=== PATIENT | female | born 1965 | race African-American/Black ===

== ENCOUNTER 2019-07-10 14:49 | Outpatient (CLI) | payer BC, SELFPAY ==
--- NOTE | ~2019-07-10 | US_ITS ---
EXAMINATION: US thyroid DATE: 07/10/2019 15:50 INDICATION: Nontoxic goiter TECHNIQUE: Multiple ultrasound images of the thyroid were obtained. COMPARISON: None. FINDINGS: The right thyroid lobe measures 4.9 x 1.8 x 1.9 cm. The left thyroid lobe measures 4.7 x 1.5 x 2.2 c m. There are several subcentimeter hypoechoic solid nodules the largest a 6 mm wider than tall with well-defined nodule without echogenic foci (TI-RADS 4, moderately suspicious , FNA if >=1.5 cm, annua l followup is >1 cm) at the junction of the isthmus and left thyroid lobe. There is normal echotextur e, echogenicity and vascular flow throughout the thyroid gland. IMPRESSION: 1. Multiple subcentimeter solid thyroid nodules which do not meet criteria for biopsy or follow-up. Reviewed, dictated and finalized at location A.
== END 2019-07-10 14:50 | disposition home or self-care (01) ==
LOC: ANHIMG 15:07
PROVIDERS: Visit Provider Internal Medicine Endocrinology, Diabetes & Metabolism
DX: E04.9 Nontoxic goiter, unspecified (principal)
CPT/HCPCS: 76536

== ENCOUNTER 2019-09-02 15:37 | Inpatient (IN) | payer OTHER, SELFPAY ==
--- NOTE | ~2019-09-02 | XR_ITS ---
XR chest ET placement DATE: 09/04/2019 15:36 INDICATION: Intubation. Central line. OG tube placement. TECHNIQUE: Portable AP chest on 09/04/2019 at 1540 hours COMPARISON: 09/04/2019 portable AP chest at 0551 hours FINDINGS: ET tube in satisfactory position 2.1 cm above juan. Orogastric tube in stomach. Right int ernal jugular central venous catheter tip is noted at approximately superior cavoatrial junction. There are extensive bilateral pulmonary infiltrates which predominate centrally and in the lower lung zones, suggesting pulmonary edema, extensive pneumonia and/or ARDS. No pneumothorax. No significant pleural effusion is noted. IMPRESSION: ET and NG tubes in satisfactory position Right internal jugular central venous catheter tip at superior cavoatrial junction Reviewed, dictated and finalized at Location A. Reviewed, dictated and finalized at location A. IMPRESSION: ET and NG tubes in satisfactory position Right internal jugular central venous catheter tip at superior cavoatrial junct ion
--- NOTE | ~2019-09-02 | XR_ITS ---
EXAMINATION: XR chest 1V portable DATE: 09/05/2019 05:58 INDICATION: COVID-19 pneumonia. TECHNIQUE: A single frontal view of the chest was obtained. COMPARISON: Chest single view 09/04/2019 FINDINGS: There are patchy airspace opacities throughout the lungs bilaterally. No pleural effusion o r pneumothorax. The heart size is normal. The endotracheal tube tip is 3.3 cm above the juan. The n asogastric tube tip is in the stomach. A right internal jugular central venous catheter is seen with tip in the superior vena cava. IMPRESSION: 1. Stable diffuse lung disease, consistent with pneumonia versus pulmonary edema versus acute respira tory distress syndrome (ARDS). Reviewed, dictated and finalized at location A. IMPRESSION: 1. Stable diffuse lung disease, consistent with pneumonia versus pulmonary marysol a versus acute respiratory distress syndrome (ARDS).
--- NOTE | ~2019-09-02 | XR_ITS ---
EXAMINATION: XR chest 1V portable DATE: 09/04/2019 06:02 INDICATION: Shortness of breath. COVID-19 pneumonia. TECHNIQUE: A single frontal view of the chest was obtained. COMPARISON: Chest single view 09/02/2019 FINDINGS: There are patchy airspace opacities throughout the lungs bilaterally. No pleural effusion o r pneumothorax. The heart size is normal. Surgical clips in the right upper quadrant are likely from cholecystectomy. IMPRESSION: 1. Worsened diffuse lung disease, consistent with pneumonia versus pulmonary edema versus acute respi ratory distress syndrome (ARDS). Reviewed, dictated and finalized at location A. IMPRESSION: 1. Worsened diffuse lung disease, consistent with pneumonia versus pulmonary ed jeff versus acute respiratory distress syndrome (ARDS).
--- NOTE | ~2019-09-02 | CT_ITS ---
EXAMINATION: CT brain wo con DATE: 09/04/2019 08:11 INDICATION: Dizziness. Altered mental state. Nausea. Positive Covid-19 TECHNIQUE: Computed tomography (CT) of the head was performed without intravenous contrast. The mA wa s adjusted according to patient size. Iterative reconstruction technique was employed. Exam dose: 60 5.33 mGy-cm total exam DLP. COMPARISON: 08/08/2018 CT brain 03/01/2019 CTA brain carotid FINDINGS: Examination is limited due to patient motion. No intracranial mass lesion or hemorrhage or cerebrovascular accident is evident. No midline shift or mass effect. No subdural or epidural hematoma. No fracture or bone destruction of the cranial vault. Included sinuses and mastoid air cells are unremarkable. Empty sella appearance is again noted. IMPRESSION: No acute intracranial finding noted Reviewed, dictated and finalized at Location A. Reviewed, dictated and finalized at location A.
--- NOTE | ~2019-09-02 | CT_ITS ---
EXAMINATION: CT brain wo con DATE: 09/06/2019 13:35 INDICATION: Cerebrovascular accident. Evaluate for possible intracranial bleed. TECHNIQUE: Computed tomography (CT) of the head was performed without intravenous contrast. The mA wa s adjusted according to patient size. Iterative reconstruction technique was employed. Exam dose: 60 5.33 mGy-cm total exam DLP. COMPARISON: 09/04/2019 CT brain FINDINGS: There is dramatic interval change since 09/04/2019 with extensive encephalomalacia involving the left cerebral hemisphere including the left temporal, frontal and parietal lobes in the distribu tion of the middle cerebral artery in particular, with involvement of some of the distribution of the anterior cerebral artery as well. There is edema of the left cerebral hemisphere with effacement of the cortical sulci. There is compression of the body of the left lateral ventricle and left frontal h orn as well as right frontal horn There is subfalcine rightward midline shift. There is evidence of s ome focal hemorrhage within the medial aspect of the left frontal lobe. There is evidence of some thr ombosed branches of the middle cerebral artery. 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 Left cerebral edema, cortical sulcal effacement, subfalcine rightward midline shift Dr. Leach telephoned the report to hospital senior speech pathologist Dr. Blood on 09/06/2019 at 1352 hours. Reviewed, dictated and finalized at Location [facility]. Reviewed, dictated and finalized at location A. IMPRESSION: Massive left middle cerebral artery territory cerebrovascular righ t infarct, with involvement of some anterior left cerebral artery distribution as well; there is some focal hemorrhage within the medial aspect of the left fr ontal lobe. Left cerebral edema, cortical sulcal effacement, subfalcine rightward midline s hift Dr. Leach telephoned the report to hospital senior speech pathologist Dr. Blood on 0 at 1352 hours.
--- NOTE | ~2019-09-02 | XR_ITS ---
EXAMINATION: XR chest 1V portable EXAM DATE: 09/02/2019 17:37 INDICATION: Shortness of breath and cough. TECHNIQUE: Frontal and lateral projections of the chest obtained and reviewed. Comparison is made to prior examination from 08/08/2018. FINDINGS: There is interval development of rather extensive ill-defined bilateral airspace disease, differential diagnosis including infection, acute lung injury, edema. No pneumothorax or pleural effu freddie. Mild cardiomegaly. Cardiac silhouette is stable in size compared to prior exam. There are merle cystectomy clips. IMPRESSION: 1. Development of rather extensive acute airspace disease; clinical correlation. Reviewed, dictated and finalized at location A. IMPRESSION: 1. Development of rather extensive acute airspace disease; clinical correlati on.
[2019-09-02 15:40] VITALS: BP 157/95; PULSE 95; RESP 20; TEMP 37.8; O2SAT 100
[2019-09-02] MEDS: SODIUM CHLORIDE 0.9% IV 1,000 ML 150 ML IV CONT (17:59)
[2019-09-02] MEDS: ONDANSETRON INJ 4 MG/2 ML VIAL IV PUSH (18:00)
--- NOTE | 2019-09-02 18:00 | ED.RECABL ---
HPI - Recheck/Abnormal Lab/Rx General Chief Complaint: Recheck/Abnormal Lab/Rx Stated Complaint: SOB Time Seen by Provider: 09/02/19 17:48 History of Present Illness HPI narrative: Patient presents with her daughter for ongoing COVID infection, fever, and vomiting. She complains of pain in her back on the left side. Her oxygen has been fine. She has been seen recently in another ER, and discharged. She is even been vomiting water. Her symptoms started in June. Related Data Home Medications Medication Instructions Recorded Confirmed amlodipine [Norvasc] 03/10/19 atorvastatin [Lipitor] 10 mg PO DAILY 03/10/19 03/10/19 hydrochlorothiazide 12.5 mg PO DAILY 03/10/19 03/10/19 metformin [Glucophage XR] mg PO 03/10/19 Allergies Allergy/AdvReac Type Severity Reaction Status Date / Time No Known Allergies Allergy Verified 03/10/19 08:32 Review of Systems Review of Systems: Narrative: CONSTITUTIONAL: She has fever, chills, or sweats. EYES: Denies visual changes, redness, or discharge. ENT: Denies rhinorrhea, congestion, sore throat, or otalgia. CARDIOVASCULAR: Denies palpitations, or edema. RESPIRATORY: She has cough and shortness of breath GASTROINTESTINAL: Denies abdominal pain, diarrhea. GENITOURINARY: Denies dysuria or hematuria. SKIN: Denies rash or itching. MUSCULOSKELETAL: Denies back pain, joint pain, or myalgia. NEUROLOGIC: Denies headache, numbness, or weakness. PSYCHIATRIC: Denies anxiety or depression. All systems reviewed & are unremarkable except as noted in HPI and below PMFSH Past Medical History Medical History Anemia DM II (diabetes mellitus, type II), controlled Hypertension UTI (urinary tract infection) Surgical History Surgical History History of cholecystectomy History of hysterectomy Hx of toe surgery Social History Social History Smoking status: Never smoker Gender identity (if verbalized by the patient): Female Exam Const: General: no acute distress and alert Orientation/consciousness: patient oriented x3 Course Reevaluation(s) Reevaluation #1: Discussed with the patient and her daughter the admission process, and that Dr. Real requests that she not have anything to eat or drink. She agrees. Date: 09/02/19 Time: 19:43 Consultations Consultation #1: Call the hospitalist for admission. Despite normal saturations the patient's blood gas shows that that she is hypoxic with a PO2 of 66. The repeated vomiting puts her at risk of dehydration. Will admit for observation and IV fluids. Date: 09/02/19 Time: 18:42 Vital Signs Vital signs: Vital Signs Temperature 100.0 F H 09/02/19 15:40 Pulse Rate 95 09/02/19 15:40 Respiratory Rate 20 09/02/19 15:40 Blood Pressure 157/95 H 09/02/19 15:40 Pulse Oximetry 100 09/02/19 15:40 Temperature 99.3 F 09/02/19 18:41 Pulse Rate 100 09/02/19 18:41 Respiratory Rate 18 09/02/19 18:41 Blood Pressure 142/70 H 09/02/19 18:41 Pulse Oximetry 99 09/02/19 18:41 MDM - Recheck/Abnormal Lab/Rx MDM Narrative Medical decision making narrative: She is known to have COVID but her oxygen remains normal. The problem now is that she is vomiting and not keeping down fluids. Medical Records Attestation: I reviewed the patient's medical records. Lab Data Attestation: I reviewed the patient's lab results. Result diagrams: 09/02/19 18:18 09/02/19 18:17 Labs: Lab Results 09/02/19 09/02/19 09/02/19 Range/Units 18:17 18:17 18:17 WBC (4.5-10.0) K/mm3 RBC (4.2-5.4) M/mm3 Hgb (12.0-15.0) g/dL Hct (37.0-47.0) % MCV (80-100) fl MCH (26-34) pg MCHC (32-36) g/dl RDW (11.5-14.5) % Plt Count (150-375) k/mm3 MPV (7.4-10.4) fl Immature Gran % (Auto) (0-0.5) % Neut % (Auto) (45.5-73.1
[2019-09-02 18:26] LABS: Alveolar/Arterial O2 Gradient 152.8 mmHg; Base Excess ABG -3.4 mEq/l (+/-2.0); Fractional Inspired Oxygen 36 %; HCO3 ABG 20.5 mEq/l (22.0-26.0); Oxygen Saturation ABG 93.8 % (95.0-100.0); Oxyhemoglobin 89.4 % THb (90.0-100.0); PCO2 ABG 32.3 mmHg (35.0-45.0); PO2 ABG 66.4 mmHg (80.0-100.0); PO2 FiO2 Ratio Arterial Blood 1.84 %; Total Hemoglobin 9.5 g/dL (12.0-18.0)
[2019-09-02 18:27] LABS: Device NASAL CANNULA; Site Drawn LEFT BRACHIAL
[2019-09-02 18:32] LABS: Basophils Percent Auto 0.1 % (0.2-1.2); Hematocrit 27.2 % (37.0-47.0); Hemoglobin 8.6 g/dL (12.0-15.0); Immature Granulocyte Absolute 0.05 K/mm3 (0.00-0.031); Immature Granulocyte Percent A 0.6 % (0-0.5); Lymphocytes Absolute Auto 0.97 K/mm3 (0.9-3.2); Mean Corpuscular HGB Conc 31.6 g/dl (32-36); Mean Corpuscular Hemoglobin 22.1 pg (26-34); Mean Corpuscular Volume 69.7 fl (80-100); Mean Platelet Volume 9.8 fl (7.4-10.4); Monocytes Absolute Auto 0.2 K/mm3 (0.1-0.6); Monocytes Percent Auto 2.4 % (2.6-8.5); Neutrophils Absolute Auto 7.6 K/mm3 (1.3-6.7); Neutrophils Percent Auto 85.9 % (45.5-73.1); Platelet Count Result 490 k/mm3 (150-375); Red Cell Distribution Width 18.9 % (11.5-14.5); White Blood Count 8.8 K/mm3 (4.5-10.0)
[2019-09-02 18:41] VITALS: BP 142/70; PULSE 100; RESP 18; TEMP 37.4; O2SAT 99
[2019-09-02 18:46] LABS: Alanine Aminotransferase 29 U/L (4-35); Albumin Level 3.5 g/dL (3.5-5.1); Alkaline Phosphatase 129 U/L (38-126); Aspartate Amino Transferase 57 U/L (14-36); Bilirubin,Total 0.5 mg/dL (0.2-1.3); Blood Urea Nitrogen 27 mg/dL (7-17); Calcium 8.2 mg/dL (8.4-10.2); Carbon Dioxide 20 mmol/L (22-30); Chloride 101 mmol/L (98-107); Estimated Glomerular Filt Rate 57; Glucose 277 mg/dL (65-105); Lactic Acid 0.9 mmol/L (0.7-2.1); Potassium 4.6 mmol/L (3.4-5.0); Sodium 131 mmol/L (137-145)
[2019-09-02 18:56] LABS: Troponin I < 0.012 ng/mL (0.000-0.034)
[2019-09-02 20:05] VITALS: BP 135/58; PULSE 101; RESP 18; TEMP 37.3; O2SAT 91
[2019-09-02 20:50] VITALS: BMI 33.6
--- NOTE | 2019-09-02 21:22 | PM.IMHP ---
H&P: HPI History of Present Illness Chief complaint: Ongoing nausea and vomiting, feeling bad++ Narrative: This is a pleasant 54 year old Diabetic female who presented to the hospital today with known COVID-19 infection, nausea, vomiting, and fatigue. The patient tested positive for COVID-19 at [facility] one week ago and reports that she has had ongoing fevers, nasuea, and vomiting. She reports generalized weakness. She last ate over a day ago and hasn't een able to keep any food or fluid down secondary to severe nausea. The patient was evaluated in the ER tonight and found to be hypoxemic on ABG. The patient reports ongoing nonproductive coughing but denies any signficiant shortness of breath tonight. Despite her ABG demonstrating a pO2 of 66.4, she has been saturating 99-100% on room air. CXR demonstrated development of rather extensive acute airspace disease; clinical correlation. The patient was started on IV antibiotics in the ER tonight. She has no other complaints and we have been asked to admit her to the hospital for supportive care. Review of Systems Review of Systems: All systems reviewed & are unremarkable except as noted in HPI and below PMFSH Past Medical History Medical History Anemia DM II (diabetes mellitus, type II), controlled Hypertension UTI (urinary tract infection) Surgical History Surgical History History of cholecystectomy History of hysterectomy Hx of toe surgery Family History Family History Other Diabetes mellitus Social History Social History Smoking status: Never smoker Alcohol intake: never Substance use: never Gender identity (if verbalized by the patient): Female Spiritual care concerns: No Meds Home Medications and Allergies Home Medications Medication Instructions Recorded Confirmed Type amlodipine [Norvasc] 03/10/19 History metformin [Glucophage XR] mg PO 03/10/19 History Allergies Allergy/AdvReac Type Severity Reaction Status Date / Time No Known Allergies Allergy Verified 03/10/19 08:32 Vital Signs Vital Signs - 24 hr 09/02/19 15:40 09/02/19 18:41 Temperature 37.8 C H 37.4 C Pulse Rate 95 100 Respiratory Rate 20 18 Blood Pressure 157/95 H 142/70 H Pulse Oximetry 100 99 Exam Const: General: cooperative, alert, awake and ill appearing Nutritional Appearance: well nourished Orientation/consciousness: patient oriented x3 HENMT: Head: normal to inspection General nose exam: Normal external nose present Face and sinus: normal facial exam Mouth: Yes Normal oral and palatal mucosa present and Yes oropharynx normal Eyes: Pupils: Equal, round and reactive pupils present EOM: EOMs intact bilaterally Neck: Neck: supple and no JVD Thyroid: thyroid normal Lymphatic: lymphadenopathy not noted Resp: Effort & Inspection: normal respiratory effort and other (coughing++ ) Auscultation: crackles (bibasilar++) Cardio: Rate: regular rate Rhythm: regular rhythm Heart sounds: no murmurs GI: Inspection: normal to inspection Auscultation: normal bowel sounds Skin: General skin exam: normal color and no rashes or lesions noted Neuro: General: patient oriented x3 Cranial nerves: Yes CN's II-XII intact bilaterally and Yes Equal, round and reactive pupils present Speech: normal speech Motor exam (neuro): 5/5 motor strength present throughout Sensory Exam: normal sensation Extrem: General: normal to inspection and no edema Psych: Mental Status: mental status grossly normal Affect: normal affect H&P: Results Labs Labs: Short CBC 09/02/19 Range/Units 18:18 WBC 8.8 (4.5-10.0) K/mm3 Hgb 8.6 L (12.0-15.0) g/dL Hct 27.2 L (37.0-47.0) % Plt Count 490 H (150-375) k/mm3 BMP 09/02/19 18:17 Sodium
[2019-09-02] MEDS: ALBUTEROL SULFATE (*SP) AEROSOL 1 PUFF 2 PUFF INHALATION (22:02)
[2019-09-02 22:09] VITALS: O2SAT 90
[2019-09-02] MEDS: SODIUM CHLORIDE 0.9% IV 1,000 ML 125 ML IV CONT (22:59)
[2019-09-03] VITALS (12 sets, daily range): BP systolic 129–146; BP diastolic 70–85; PULSE 91–105; RESP 20; TEMP 36.7–38.1; O2SAT 82–94
[2019-09-03 01:51] LABS: Glucose Point of Care 297 (65-105)
[2019-09-03] MEDS: MORPHINE SULFATE 2 MG/ML INJ IV PUSH (03:25)
[2019-09-03 06:40] LABS: Glucose Point of Care 303 (65-105)
[2019-09-03] MEDS: INSULIN ASPART (*BKC) 100 UNITS/ML SUB-Q ×3 (06:43→17:38)
--- NOTE | 2019-09-03 08:18 | ADMGEN ---
This patient, Natividad Ramirez, was admitted to 3 [facility] Surg Room 327-01. Patient/family oriented to hospital policies and general routines including ID bracelet, bed and alarms, visiting hours, pain management, procedures, bathroom and other care routines, personal items, smoking policy, room service/diet, and visiting hours. Valuables list has been completed. Information on how to activate the Rapid Response Team has been discussed. Patient/Family are encouraged to report perceived risks to care and to ask questions if they do not understand what they are told or what they should do.
--- NOTE | 2019-09-03 09:09 | P.PNIM_ITS ---
Progress Note: A&P Assessment and Plan (1) COVID-19: Code(s): U07.1 - COVID-19 Status: Acute Assessment and Plan: Patient tested positive for COVID-19 at outside facility. Endorses cough and shortness of breath. She was febrile at 100.5 early this morning. On my exam today, she was maintaining adequate saturation on 4 L O2 and was in NARD. Shortly thereafter, she became hypoxic. RT evaluated patient and attempted high flow NC which she did not tolerate, so transitioned to non-rebreather. She is currently on 12L and maintaining O2 saturation 99-100%. * Continue non-rebreather and wean as tolerated. Continuous pulse ox for monitoring. Will monitor respiratory status closely and will need to consider transition to higher acuity status if oxygenation continues to decline with non-rebreather. * Continue droplet isolation * Continue Mucinex and cornet to help mobilize secretions * Continue acetaminophen prn fever * Trend acute phase reactants * Continue albuterol MDI. * Discontinue IV fluids. * Continue to monitor CXR for progression (2) Pneumonia: Qualifiers: Laterality: unspecified laterality Lung location: unspecified part of lung Pneumonia type: due to unspecified organism Qualified Code(s): J18.9 - Pneumonia, unspecified organism Code(s): J18.9 - Pneumonia, unspecified organism Status: Acute Assessment and Plan: CXR reveals extensive acute airspace disease. Likely viral pneumonia from COVID- 19. Lactic wnl at 0.9 * Continue oxygen supplementation as needed with goal saturation >92% * Continue ceftriaxone and azithromycin * Will attempt to obtain sputum culture * Blood cultures pending * Pneumococcal antigen pending * RT to assess and treat with recommendations appreciated (3) Acute dehydration: Code(s): E86.0 - Dehydration Status: Acute Assessment and Plan: Patient appeared dehydrated at presentation and received IV fluids overnight. She was made NPO at admission. Patient appears euvolemic on exam today. * Discontinue IV fluids due to COVID-19 status and concerns for fluid overload * Monitor urine output and vital signs closely * Begin clear liquid diet (4) Acute renal failure: Qualifiers: Acute renal failure type: unspecified Qualified Code(s): N17.9 - Acute kidney failure, unspecified Code(s): N17.9 - Acute kidney failure, unspecified Status: Acute Assessment and Plan: At presentation, creatinine elevated at 1.2. This may have been due to acute dehydration. BMP pending today. * Monitor BMP closely. * Discontinue IV fluids as patient appears euvolemic and is at risk for fluid overload. * Continue to hold metformin * Avoid nephrotoxic agents and renally dose medications. (5) DM II (diabetes mellitus, type II), controlled: Qualifiers: Diabetes mellitus complication status: without complication Diabetes mellitus group home insulin use: without joint terminal attack controller use Qualified Code(s): E11.9 - Type 2 diabetes mellitus without complications Code(s): E11.9 - Type 2 diabetes mellitus without complications Status: Chronic Assessment and Plan: Last a1c April 2019 was 11.4. Blood sugars are elevated in the 290-300 range. * Continue accuchecks, SSI Coverage, and hypoglycemic protocol. * Continue to hold metformin secondary to DIONNA * Patients home Tresiba is non-formulary so will transition to lantus with 20% reduction * Check updated A1c (6) Hypertension: Qualifiers: Hypertension type:
--- NOTE | 2019-09-03 09:09 | PM.IMPN ---
Progress Note: A&P Assessment and Plan (1) COVID-19: Code(s): U07.1 - COVID-19 Status: Acute Assessment and Plan: Patient tested positive for COVID-19 at outside facility. Endorses cough and shortness of breath. She was febrile at 100.5 early this morning. On my exam today, she was maintaining adequate saturation on 4 L O2 and was in NARD. Shortly thereafter, she became hypoxic. RT evaluated patient and attempted high flow NC which she did not tolerate, so transitioned to non-rebreather. She is currently on 12L and maintaining O2 saturation 99-100%. Continue non-rebreather and wean as tolerated. Continuous pulse ox for monitoring. Will monitor respiratory status closely and will need to consider transition to higher acuity status if oxygenation continues to decline with non-rebreather. Continue droplet isolation Continue Mucinex and cornet to help mobilize secretions Continue acetaminophen prn fever Trend acute phase reactants Continue albuterol MDI. Discontinue IV fluids. Continue to monitor CXR for progression (2) Pneumonia: Qualifiers: Laterality: unspecified laterality Lung location: unspecified part of lung Pneumonia type: due to unspecified organism Qualified Code(s): J18.9 - Pneumonia, unspecified organism Code(s): J18.9 - Pneumonia, unspecified organism Status: Acute Assessment and Plan: CXR reveals extensive acute airspace disease. Likely viral pneumonia from COVID-19. Lactic wnl at 0.9 Continue oxygen supplementation as needed with goal saturation >92% Continue ceftriaxone and azithromycin Will attempt to obtain sputum culture Blood cultures pending Pneumococcal antigen pending RT to assess and treat with recommendations appreciated (3) Acute dehydration: Code(s): E86.0 - Dehydration Status: Acute Assessment and Plan: Patient appeared dehydrated at presentation and received IV fluids overnight. She was made NPO at admission. Patient appears euvolemic on exam today. Discontinue IV fluids due to COVID-19 status and concerns for fluid overload Monitor urine output and vital signs closely Begin clear liquid diet (4) Acute renal failure: Qualifiers: Acute renal failure type: unspecified Qualified Code(s): N17.9 - Acute kidney failure, unspecified Code(s): N17.9 - Acute kidney failure, unspecified Status: Acute Assessment and Plan: At presentation, creatinine elevated at 1.2. This may have been due to acute dehydration. BMP pending today. Monitor BMP closely. Discontinue IV fluids as patient appears euvolemic and is at risk for fluid overload. Continue to hold metformin Avoid nephrotoxic agents and renally dose medications. (5) DM II (diabetes mellitus, type II), controlled: Qualifiers: Diabetes mellitus complication status: without complication Diabetes mellitus residential insulin use: without residential use Qualified Code(s): E11.9 - Type 2 diabetes mellitus without complications Code(s): E11.9 - Type 2 diabetes mellitus without complications Status: Chronic Assessment and Plan: Last a1c April 2019 was 11.4. Blood sugars are elevated in the 290-300 range. Continue accuchecks, SSI Coverage, and hypoglycemic protocol. Continue to hold metformin secondary to DIONNA Patients home Tresiba is non-formulary so will transition to lantus with 20% reduction Check updated A1c (6) Hypertension: Qualifiers: Hypertension type: unspecified Qualified Code(s): I10 - Essential (primary) hypertension Code(s): I10 - Essential (primary) hypertension Status: Chronic Assessment and Plan: Blood pressure evaluated today and stable at 137/85. Continue home dose amlodipine Resume HCTZ when renal function is normal. Continue to monitor closely (7) Anemia: Qualifiers: Anemia type: unspecified type Mauricio
[2019-09-03] MEDS: ALBUTEROL SULFATE (*SP) AEROSOL 1 PUFF 2 PUFF INHALATION ×3 (09:25→19:33)
[2019-09-03] MEDS: AMLODIPINE BESYLATE 5 MG TABLET PO (10:41)
[2019-09-03 11:34] LABS: Hematocrit 27.5 % (37.0-47.0); Hemoglobin 8.6 g/dL (12.0-15.0); Mean Corpuscular HGB Conc 31.3 g/dl (32-36); Mean Corpuscular Hemoglobin 21.9 pg (26-34); Mean Corpuscular Volume 70.2 fl (80-100); Mean Platelet Volume 9.4 fl (7.4-10.4); Platelet Count Result 510 k/mm3 (150-375); Red Blood Count 3.92 M/mm3 (4.2-5.4); Red Cell Distribution Width 19.1 % (11.5-14.5); White Blood Count 7.4 K/mm3 (4.5-10.0)
[2019-09-03 11:47] LABS: Alanine Aminotransferase 29 U/L (4-35); Albumin Level 3.3 g/dL (3.5-5.1); Alkaline Phosphatase 126 U/L (38-126); Aspartate Amino Transferase 53 U/L (14-36); Bilirubin,Total 0.4 mg/dL (0.2-1.3); Blood Urea Nitrogen 26 mg/dL (7-17); Calcium 8.2 mg/dL (8.4-10.2); Carbon Dioxide 22 mmol/L (22-30); Chloride 105 mmol/L (98-107); Estimated CRCL calculation 51 ml/min; Estimated Glomerular Filt Rate 57; Glucose 284 mg/dL (65-105); Potassium 4.6 mmol/L (3.4-5.0); Sodium 136 mmol/L (137-145)
[2019-09-03 13:22] LABS: Glucose Point of Care 254 (65-105)
[2019-09-03] MEDS: ONDANSETRON INJ 4 MG/2 ML VIAL IV PUSH (17:30)
[2019-09-03] MEDS: GUAIFENESIN/DEXTROMETHORPHAN 10 ML UDC 5 ML PO (17:30)
[2019-09-03 18:45] LABS: Glucose Point of Care 271 (65-105)
--- NOTE | 2019-09-03 19:34 | PCRCNOTE ---
PT refused tx
[2019-09-03] MEDS: INSULIN GLARGINE (*BKC) 100 UNITS/ML 16 UNITS SUB-Q (20:24)
[2019-09-04] VITALS (22 sets, daily range): BP systolic 117–230; BP diastolic 65–139; PULSE 92–132; RESP 20–41; TEMP 37.1–38; O2SAT 78–100
[2019-09-04 00:01] LABS: Glucose Point of Care 297 (65-105)
[2019-09-04] MEDS: INSULIN ASPART (*BKC) 100 UNITS/ML SUB-Q ×3 (00:02→17:49)
[2019-09-04] MEDS: ONDANSETRON INJ 4 MG/2 ML VIAL IV PUSH (04:29)
[2019-09-04 06:04] LABS: Glucose Point of Care 285 (65-105)
[2019-09-04 06:08] LABS: Hematocrit 26.6 % (37.0-47.0); Hemoglobin 8.5 g/dL (12.0-15.0); Immature Granulocyte Percent A 0.8 % (0-0.5); Lymphocytes Percent Auto 8.8 % (18.3-44.2); Mean Corpuscular Hemoglobin 21.9 pg (26-34); Mean Corpuscular Volume 68.6 fl (80-100); Mean Platelet Volume 9.3 fl (7.4-10.4); Neutrophils Percent Auto 87.1 % (45.5-73.1); Platelet Count Result 528 k/mm3 (150-375); Red Blood Count 3.88 M/mm3 (4.2-5.4); Red Cell Distribution Width 18.9 % (11.5-14.5); White Blood Count 9.7 K/mm3 (4.5-10.0)
[2019-09-04 06:09] LABS: Basophils Percent Auto 0.1 % (0.2-1.2); Eosinophils Percent Auto 0.2 % (0-4.4); Immature Granulocyte Absolute 0.08 K/mm3 (0.00-0.031); Lymphocytes Absolute Auto 0.85 K/mm3 (0.9-3.2); Monocytes Absolute Auto 0.3 K/mm3 (0.1-0.6); Neutrophils Absolute Auto 8.5 K/mm3 (1.3-6.7)
[2019-09-04 06:18] LABS: Alanine Aminotransferase 31 U/L (4-35); Albumin Level 3.5 g/dL (3.5-5.1); Alkaline Phosphatase 154 U/L (38-126); Aspartate Amino Transferase 58 U/L (14-36); Bilirubin,Total 0.3 mg/dL (0.2-1.3); Blood Urea Nitrogen 20 mg/dL (7-17); Calcium 8.7 mg/dL (8.4-10.2); Carbon Dioxide 23 mmol/L (22-30); Chloride 104 mmol/L (98-107); Creatine Kinase 154 U/L (30-135); Estimated CRCL calculation 51 ml/min; Estimated Glomerular Filt Rate 57; Glucose 278 mg/dL (65-105); Lactate Dehydrogenase 1673 U/L (313-618); Magnesium 2.7 mg/dL (1.6-2.3); Potassium 4.8 mmol/L (3.4-5.0); Sodium 135 mmol/L (137-145)
[2019-09-04 06:30] LABS: Hemoglobin A1C 10.5 % (<5.7)
--- NOTE | 2019-09-04 07:50 | PC.NURSE ---
Called to room to evaluate patient due to low oxygen saturation- resp tech in room. Patient restless with eyes open but not responding to verbal stimuli - will not answer when asked questions. 02 sat was 78% on nonrebreather. Rapid response team called and Sherrie BOWLES arrived to bedside. See rapid response assessment.
[2019-09-04 07:51] LABS: Alveolar/Arterial O2 Gradient 630.5 mmHg; Fractional Inspired Oxygen 100 %; HCO3 ABG 21.1 mEq/l (22.0-26.0); Oxyhemoglobin 82.8 % THb (90.0-100.0); PCO2 ABG 34.1 mmHg (35.0-45.0); PO2 FiO2 Ratio Arterial Blood 0.48 %; Total Hemoglobin 9.4 g/dL (12.0-18.0)
[2019-09-04 07:53] LABS: Device NON-REBREATHER MASK; Modified Allen's Test Pass; PO2 ABG 48.4 mmHg (80.0-100.0); Site Drawn RIGHT RADIAL
--- NOTE | 2019-09-04 08:46 | PC.NURSE ---
This patient, Natividad Ramirez, was transferred to [ICU 4 ] on 09/04/19 at 0825. Personal belongings sent with patient. Report given to [ [place]]. Appropriate documentation sent with patient.
[2019-09-04] MEDS: FUROSEMIDE INJ 40 MG/4 ML VIAL IV PUSH ×2 (08:47→09:00)
--- NOTE | 2019-09-04 08:56 | WPDCNINT ---
Assessment and Plan Assessment and plan (1) Acute respiratory failure: Qualifiers: Respiratory failure complication: hypoxia Qualified Code(s): J96.01 - Acute respiratory failure with hypoxia Code(s): J96.00 - Acute respiratory failure, unspecified whether with hypoxia or hypercapnia Status: Acute Assessment and Plan: acute hypoxic respiratory failure likely related to worsening chest x-ray pneumonia secondary to COVID-19 - patient placed on high-flow therapy with 60% flow rate had 90% FiO2 along with 15 L non-rebreather mask - patient initially was saturating in the 70s on the medical floor, currently saturating greater than 92%. - continue azithromycin and ceftriaxone. - No cough has been noted - will discuss with family as patient may require intubation if she desaturates all gets tachypneic. (2) COVID-19: Code(s): U07.1 - COVID-19 Status: Acute Assessment and Plan: Positive COVID-19 at [facility] 1 week prior to admission - will re-swab patient here at [facility] - place patient on airborne, droplet, contact precautions /isolation - will obtain inflammatory labs along with PTT /INR (3) Pneumonia: Qualifiers: Laterality: unspecified laterality Lung location: unspecified part of lung Pneumonia type: due to unspecified organism Qualified Code(s): J18.9 - Pneumonia, unspecified organism Code(s): J18.9 - Pneumonia, unspecified organism Status: Acute Assessment and Plan: as above (4) DM II (diabetes mellitus, type II), controlled: Qualifiers: Diabetes mellitus complication status: without complication Diabetes mellitus penitentiary insulin use: without termination clerk use Qualified Code(s): E11.9 - Type 2 diabetes mellitus without complications Code(s): E11.9 - Type 2 diabetes mellitus without complications Status: Chronic Assessment and Plan: patient on Accu-Cheks and sliding scale insulin along with Lantus. Blood sugars elevated, increase Lantus (5) Hypertension: Qualifiers: Hypertension type: unspecified Qualified Code(s): I10 - Essential (primary) hypertension Code(s): I10 - Essential (primary) hypertension Status: Chronic Assessment and Plan: will allow permissive hypertension given CVA. - Will treat systolic blood pressures greater than 180 mmHg (6) Right sided weakness: Code(s): R53.1 - Weakness Status: Acute Assessment and Plan: most likely CVA - discussed with Neurology, Dr. Rebollar, also thinks the same that she has had a CVA though CT scan of the brain today, 09/21/2019 does not show any acute intracranial abnormalities - given that the patient is COVID-19 positive, discussed in details with Neurology regarding anticoagulation and Acute stroke of unknown time. It was decided we will start her on Lovenox 1 mg/kg daily. (7) Acute renal failure: Qualifiers: Acute renal failure type: unspecified Qualified Code(s): N17.9 - Acute kidney failure, unspecified Code(s): N17.9 - Acute kidney failure, unspecified Status: Acute Assessment and Plan: Patient presented with acute kidney injury with a creatinine of 1.2 on admission, likely related to nausea and vomiting, possible dehydration, could also be related to hypertension, insulin-dependent diabetes - patient received adequate IV fluids, - creatinine is stable at 1.2. Given her increase bilateral infiltrates, patient will be diuresed - continue to monitor renal function, electrolytes and urine output (8) Anemia: Qualifiers: Anemia type: unspecified type Qualified Code(s): D64.9 - Anemia, unspecified Code(s): D64.9 - Anemia, unspecified Status: Chronic Assessment and Plan: patient anemic, hemoglobin has stable since admission. Will continue to monitor - l check stool for occult blood, - could be related to
[2019-09-04 09:05] LABS: Add Urine Microscopic? YES; Appearance Urine Cloudy (Clear); Bacteria Urine Trace /hpf; Bilirubin Urine Negative (Negative); Blood Urine 1+ (Negative); Color Urine Yellow (Yellow); Glucose Urine UA 2+ mg/dL (Negative); Ketones Urine 1+ mg/dL (Negative); Leukocyte Esterase Ur Negative LEU/UL (Negative); Nitrate Urine Negative (Negative); Protein Urine 3+ mg/dL (Negative); RBC Urine 0-2 /hpf (0-2); Specific Grav Ur 1.014 (1.001-1.035); Squamous Epithelial Cell Urine Occasional /hpf (Few); Urobilinogen Urine Negative mg/dL (<2.0); WBC Urine 0-3 /hpf
[2019-09-04] MEDS: ALBUTEROL SULFATE (*SP) AEROSOL 1 PUFF 2 PUFF INHALATION (12:00)
[2019-09-04 12:29] LABS: Lactate Dehydrogenase 1865 U/L (313-618)
[2019-09-04 12:59] LABS: CRP 32.3 mg/dL (<1.0)
[2019-09-04] MEDS: PROPOFOL IV EMULSION 100 ML 2.6 MG IV CONT (14:15)
[2019-09-04 15:17] LABS: Alveolar/Arterial O2 Gradient 559.5 mmHg; Base Excess ABG -5.1 mEq/l (+/-2.0); Carboxyhemoglobin 0.3 % THb (0-2.0); Fractional Inspired Oxygen 100 %; HCO3 ABG 21.1 mEq/l (22.0-26.0); Methemoglobin ABG 0.4 %THb (0-1.5); Oxygen Saturation ABG 97.5 % (95.0-100.0); Oxyhemoglobin 96.1 % THb (90.0-100.0); PCO2 ABG 43.9 mmHg (35.0-45.0); PO2 ABG 109.6 mmHg (80.0-100.0); Reduced Hemoglobin 3.2 %THb (0-5.0); Total Hemoglobin 10.2 g/dL (12.0-18.0)
[2019-09-04 15:24] LABS: Modified Allen's Test Pass; Site Drawn RIGHT RADIAL
[2019-09-04 15:25] LABS: Arterial Blood Gas PEEP 12 cmH2O; Arterial Blood Gas Tidal Volume 370 ml; Arterial Blood Gas Vent Mode CMV; Arterial Blood Gas Ventilator rate 26 /MIN; Device VENTILATOR
--- NOTE | 2019-09-04 15:26 | CONS_ITS ---
DATE OF CONSULTATION: 09/03/2019 HISTORY OF PRESENT ILLNESS: A 54-year-old has been admitted to the hospital with the complaints of nausea, vomiting, fatigue, fever, along with the complaint of generalized weakness and with information that she ate last over a day ago and has not been able to keep any food or fluid down secondary to severe nausea. In the emergency room, she was found to be hypoxemic on ABGs with nonproductive cough and a PO2 of 66.4, saturating 99%-100% on the room air. Chest x-ray with extensive acute airspace disease. The patient was started on IV antibiotics in the ER. The patient has ongoing history of COVID-19 positive just 1 week ago. In addition, she has ongoing history of type 2 diabetes mellitus, hypertension, UTI, cholecystectomy, hysterectomy, and toe surgery. SOCIAL HISTORY: She is a never drinker, never smoker. MEDICATIONS: She was taking amlodipine along with metformin XR. ALLERGIES: SHE IS NOT ALLERGIC TO ANY MEDICATION. PHYSICAL EXAMINATION: VITAL SIGNS: On initial evaluation, she was found to have pulse of 95, respirations 20, blood pressure 157/95, and a temperature of 37.8. GENERAL: Examination revealed her to be awake, alert, cooperative. HEENT: Head normocephalic with no cranial bruits. Ear, nose, throat exam normal. NECK: Supple with no cervical bruits. No thyromegaly. No lymphadenopathy. HEART: Regular with no murmur. LUNGS: Clear. ABDOMEN: Soft. NEUROLOGICAL: Normal mental status. Normal speech. No focal neurological deficit. Subsequent evaluation revealed her to have CBC with WBC 8.8, hemoglobin 8.6, platelet count 490. Basic metabolic panel normal except a glucose of 277, sodium of 131, troponin less than 0.012. Hepatic enzymes with AST 57, ALT 29, alkaline phos 129, albumin 3.5. As mentioned before, extensive acute airspace disease on the chest x-ray with the diagnosis of pneumonia and history of COVID-19 positive as an outpatient and also finding of acute UTI and confirmation of diabetes, hypertension, and anemia. Since admission to the hospital, she has been seen by the hospitalist and during the hospitalization she became hypoxic requiring 4 L of oxygen, developing respiratory distress for which she was started on non-rebreather, droplet isolation, Mucinex, Tylenol, albuterol MDI and continuation of the monitor for the chest x-ray. Then, she was transferred to the ICU for the respiratory failure secondary to the underlying illness along with the comorbid conditions. Most recent evaluation revealed her to have the WBC of 9.7, hemoglobin 8.5, and the platelet count of 528. PO2 of 48.4, bicarb 21.1, saturation only 84.0 and oxyhemoglobin of 82.8. Sodium 135, potassium 4.8, BUN 20, creatinine 1.20, GFR 57, glucose 278, hemoglobin A1c 10.5, magnesium 2.7, AST 58, alkaline phos 154, lactate 1673, and CPK 154. UA is also abnormal with 3+ protein, 2+ glucose, 1+ ketones and 1+ blood, and the most recent CT scan on 09/03 revealed her to have no acute intracranial bleed or space-occupying lesion. Chest x-ray on 09/03 again confirmed the worsened diffuse lung disease consistent with pneumonia versus pulmonary edema, acute respiratory distress syndrome. She did have the head neck CTA done in February 2019 for other reasons before this hospitalization. At that time, there was empty sella with benign intracranial intra-hypertension possibility, but there was no aneurysm. PHYSICAL EXAMINATION: GENERAL: She is awake, alert, comfortable. HEENT: Head normocephalic with no cranial bruits. Ear, nose, throat examination normal. NECK: Supple. HEART: Regular. LUNGS: Crackles, rhonchi. ABDOMEN: Soft. SKIN: Normal. NEUROLOGICAL: Awake, alert, inability to track, left downward gaze, right-sided neglect, right upper a
--- NOTE | 2019-09-04 15:57 | P.PCNBED_ITS ---
Procedures Central Line Placement Right IJ: Central Line Date: 09/04/19 Central Line Time: 14:24 Discussed w/ the patient/family/POA,the placement of a central venous catheter, including its clinical necessity/indication & associated potential risks, benifits and alternatives.: Yes The patient/family/POA understand(s) and acknowledge(s) the need to proceed with central venous catheter insertion as an important element of the patient's clinical management.: Yes Time Out Performed: Yes Patient Position: trendelenburg Patient placed on monitor/pulse ox: Yes Provider Prep: mask, sterile gown, sterile gloves, Max. sterile barrier precautions and hand hygiene Central line prep: Chlorhexidine scrub Local anesthesia used: lidocaine 1% Amount of anesthesia used (ml): 3 Ultrasound used for placement: Yes Central line lumen inserted: triple [place]: 16 Length (cm): 16 Depth of Insertion (cm): 14 Post procedure: sutured in place, good blood return, all ports aspirated, flushed, capped, tegaderm, hemostatic disc, antimicrobial disc and aseptic technique maintained throughout procedure Post procedure x-ray: tip of catheter in good position and no pneumothorax seen Patient tolerated procedure: well Complications: none
--- NOTE | 2019-09-04 15:58 | PM.IMPN ---
Progress Note: A&P Assessment and Plan (1) Acute respiratory failure: Qualifiers: Respiratory failure complication: hypoxia Qualified Code(s): J96.01 - Acute respiratory failure with hypoxia Code(s): J96.00 - Acute respiratory failure, unspecified whether with hypoxia or hypercapnia Status: Acute Assessment and Plan: Rapid response called approximately 7:45 this morning on 09/03 as patient became hypoxic in the 70% range on 15 L high flow nasal cannula on medical floor with associated confusion and decreased responsiveness. ABG performed at that time revealed hypoxemia with pO2 at 48.4 and O2 saturation 85.0. Patient transitioned to ICU and now requiring mechanical ventilation Continue to closely monitor respiratory status (2) COVID-19: Code(s): U07.1 - COVID-19 Status: Acute Assessment and Plan: Patient tested positive for COVID-19 at outside facility. She had been endorsing cough and shortness of breath. She has been febrile with Tmax of 100.5 during this stay. CXR today reveals worsening airspace disease. Transition to ICU Repeat COVID-19 swab at this facility Continue droplet isolation Continue acetaminophen prn fever Trend acute phase reactants Continue to monitor CXR for progression (3) Pneumonia: Qualifiers: Laterality: unspecified laterality Lung location: unspecified part of lung Pneumonia type: due to unspecified organism Qualified Code(s): J18.9 - Pneumonia, unspecified organism Code(s): J18.9 - Pneumonia, unspecified organism Status: Acute Assessment and Plan: CXR reveals extensive acute airspace disease. Likely viral pneumonia from COVID-19. Lactic wnl at 0.9. Blood cultures reveal no growth to date. Management as above Continue ceftriaxone and azithromycin Pneumococcal antigen pending (4) Altered mental status: Code(s): R41.82 - Altered mental status, unspecified Status: Acute Assessment and Plan: At time of rapid response, patient had significant change in mental status. She was previously alert and oriented x4. CT head performed and showed no acute abnormalities. Neurology is followed and recommendations are appreciated (5) Acute dehydration: Code(s): E86.0 - Dehydration Status: Acute Assessment and Plan: Patient appeared dehydrated at presentation and received adequate IV fluid replacement overnight. She was made NPO at admission due to N/V. Patient appears euvolemic on exam today. Monitor urine output and vital signs closely Continue NPO diet (6) Acute renal failure: Qualifiers: Acute renal failure type: unspecified Qualified Code(s): N17.9 - Acute kidney failure, unspecified Code(s): N17.9 - Acute kidney failure, unspecified Status: Acute Assessment and Plan: At presentation, creatinine elevated at 1.2. This may have been due to acute dehydration. Creatinine is remaining consistent at 1.2. Per chart review, baseline appears to be 1.0-1.1. Monitor BMP closely. Continue to hold metformin Avoid nephrotoxic agents and renally dose medications. (7) DM II (diabetes mellitus, type II), controlled: Qualifiers: Diabetes mellitus complication status: without complication Diabetes mellitus senior living insulin use: without adjunct faculty for medical terminology use Qualified Code(s): E11.9 - Type 2 diabetes mellitus without complications Code(s): E11.9 - Type 2 diabetes mellitus without complications Status: Chronic Assessment and Plan: Last a1c April 2019 was 11.4. Blood sugars are elevated in the 290-300 range. A1c is 10.5. Blood sugar evaluated today and elevated at 285. Continue accuchecks, SSI Coverage, and hypoglycemic protocol. Continue to hold metformin secondary to DIONNA Patients home Tresiba is non-formulary so will transition to lantus with 20% reduction. Increase Lantus to 20 Units Continue
--- NOTE | 2019-09-04 15:59 | WPDPROCEDUR ---
Procedures Intubation Intubation Date: 09/04/19 Intubation Time: 14:05 A pre-procedural Time-Out was completed immediately before starting the procedure and confirmed: Patient Identification, Site, Procedure, Patient Position and the Availability of Requisite Equipment: Yes Sedative: etomidate Paralytic: succinylcholine Laryngoscope: fiber optic video scope Assist device used: fiber optic device ET tube size: 7.5 Tube secured depth (cm): 23 Tube secured location: lips Tube placement confirmation: visualized tube passing through cords, equal breath sounds bilaterally, no breath sounds over epigastrium and confirmation by capnometry Patient tolerated procedure: well Intubation complications: none Additional comments: After obtaining consent from the and daughter and explaining the rationale for intubation. it was decided to go ahead and intubate the patient. The patient was lying in the supine position. Preoxygenation via BVM was provided for a minimum of 3 minutes. The patient had continuous cardiac as well as pulse oximetry monitoring during the procedure. Rapid sequence induction was provided by administration of Etomidate and Succinylcholine. A Glidescope blade 4 was used to directly visualize the vocal cords. A 7.5 mm endotracheal tube was visualized advancing between the cords to a level of 23 cm at the lip. The stylette was then removed. Tube placement was also noted by fogging in the tube, equal and bilateral breath sounds, no sounds over the epigastrium, and end-tidal colorimetric monitoring. The cuff was then inflated with 10 ml of air and the tube secured using a commercially available device. A good pulse oximetry wave form was seen on the monitor throughout the procedure. The patient was then connected to the ventilator at a tidal volume of 370 ml; rate of 26; FiO2 of 100%; and PEEP of 12. A portable chest x-ray has been ordered for placement. Continued sedation will be provided by Propofol continuous infusion titrated to a RASS of -2. The patient tolerated the procedure well.
[2019-09-04 16:38] LABS: SARS-CoV-2 RNA PCR Positive
[2019-09-04 16:56] LABS: INR 1.2; Prothrombin Time 15.2 Seconds (11.1-14.7)
[2019-09-04 16:57] LABS: Partial Thromboplastin Time 30.3 SECONDS (22.3-36.8)
[2019-09-04 17:02] LABS: Glucose Point of Care 295 (65-105)
[2019-09-04 17:29] LABS: D Dimer > 20.00 ug/mL (<0.48)
[2019-09-04] MEDS: CISATRACURIUM BESYLATE 20 MG/10 ML VIAL 12.9 MG IV PUSH (17:43)
[2019-09-04] MEDS: ENOXAPARIN 100 MG/ML SYRINGE 85 MG SUB-Q (17:44)
[2019-09-04] MEDS: PANTOPRAZOLE SODIUM IV 40 MG VIAL IV PUSH (20:03)
[2019-09-04] MEDS: INSULIN GLARGINE (*BKC) 100 UNITS/ML 20 UNITS SUB-Q (20:04)
[2019-09-04 20:28] LABS: Glucose Point of Care 386 (65-105)
[2019-09-04 20:32] LABS: Glucose Point of Care 335 (65-105)
[2019-09-04 23:11] LABS: Glucose Point of Care 411 (65-105)
[2019-09-04] MEDS: INSULIN HUMAN REGULAR (*BKC) 100 UNITS/ML 8 UNITS SUB-Q (23:24)
[2019-09-05] VITALS (32 sets, daily range): BP systolic 101–131; BP diastolic 64–75; PULSE 90–101; RESP 24–26; TEMP 37.3–38.2; O2SAT 95–100; BMI 33.1
[2019-09-05] MEDS: PROPOFOL IV EMULSION 100 ML 12.9 MG IV CONT (00:07)
[2019-09-05 04:11] LABS: Basophils Percent Auto 0.1 % (0.2-1.2); Eosinophils Percent Auto 0.3 % (0-4.4); Hematocrit 25.7 % (37.0-47.0); Hemoglobin 8.2 g/dL (12.0-15.0); Immature Granulocyte Absolute 0.07 K/mm3 (0.00-0.031); Immature Granulocyte Percent A 0.8 % (0-0.5); Lymphocytes Absolute Auto 0.99 K/mm3 (0.9-3.2); Lymphocytes Percent Auto 11.1 % (18.3-44.2); Mean Corpuscular HGB Conc 31.9 g/dl (32-36); Mean Corpuscular Hemoglobin 22.2 pg (26-34); Mean Corpuscular Volume 69.6 fl (80-100); Monocytes Absolute Auto 0.3 K/mm3 (0.1-0.6); Monocytes Percent Auto 3.3 % (2.6-8.5); Neutrophils Absolute Auto 7.5 K/mm3 (1.3-6.7); Neutrophils Percent Auto 84.4 % (45.5-73.1); Platelet Count Result 412 k/mm3 (150-375); Red Blood Count 3.69 M/mm3 (4.2-5.4); Red Cell Distribution Width 19.1 % (11.5-14.5); White Blood Count 8.9 K/mm3 (4.5-10.0)
[2019-09-05 04:30] LABS: Alanine Aminotransferase 30 U/L (4-35); Albumin Level 3.2 g/dL (3.5-5.1); Alkaline Phosphatase 159 U/L (38-126); Aspartate Amino Transferase 64 U/L (14-36); Bilirubin,Total 0.4 mg/dL (0.2-1.3); Blood Urea Nitrogen 27 mg/dL (7-17); Calcium 8.5 mg/dL (8.4-10.2); Carbon Dioxide 27 mmol/L (22-30); Chloride 100 mmol/L (98-107); Estimated CRCL calculation 30 ml/min; Estimated Glomerular Filt Rate 30; Glucose 377 mg/dL (65-105); Lactate Dehydrogenase 1558 U/L (313-618); Potassium 4.7 mmol/L (3.4-5.0); Sodium 134 mmol/L (137-145)
[2019-09-05 04:39] LABS: Alveolar/Arterial O2 Gradient 277.2 mmHg; Base Excess ABG 0.3 mEq/l (+/-2.0); Carboxyhemoglobin 0.3 % THb (0-2.0); Device VENTILATOR; Fractional Inspired Oxygen 55 %; HCO3 ABG 24.6 mEq/l (22.0-26.0); Methemoglobin ABG 0.3 %THb (0-1.5); Modified Allen's Test Pass; Oxygen Content ABG 14.1 %vol (16.0-22.0); Oxygen Saturation ABG 94.9 % (95.0-100.0); Oxyhemoglobin 93.1 % THb (90.0-100.0); PCO2 ABG 38.4 mmHg (35.0-45.0); PO2 ABG 72.2 mmHg (80.0-100.0); PO2 FiO2 Ratio Arterial Blood 1.31 %; Reduced Hemoglobin 6.3 %THb (0-5.0); Site Drawn LEFT RADIAL; Total Hemoglobin 10.7 g/dL (12.0-18.0); pH ABG 7.424 (7.350-7.450)
[2019-09-05 04:40] LABS: Arterial Blood Gas PEEP 12 cmH2O; Arterial Blood Gas Tidal Volume 370 ml; Arterial Blood Gas Vent Mode CMV; Arterial Blood Gas Ventilator rate 26 /MIN
[2019-09-05 05:15] LABS: D Dimer > 20.00 ug/mL (<0.48)
[2019-09-05 05:17] LABS: CRP 36.6 mg/dL (<1.0)
[2019-09-05] MEDS: INSULIN ASPART (*BKC) 100 UNITS/ML SUB-Q ×3 (05:18→18:43)
[2019-09-05] MEDS: NOREPINEPHRINE 8 MG/D5W 250 ML 8 MG/250 ML BAG 9.4 MG IV CONT (08:16)
[2019-09-05] MEDS: SODIUM CHLORIDE 0.9% IV 1,000 ML 999 ML IV CONT (08:32)
[2019-09-05] MEDS: SODIUM CHLORIDE 0.9% IV 1,000 ML 50 ML IV CONT (08:32)
[2019-09-05] MEDS: INSULIN GLARGINE (*BKC) 100 UNITS/ML 15 UNITS SUB-Q (08:37)
[2019-09-05] MEDS: PANTOPRAZOLE SODIUM IV 40 MG VIAL IV PUSH ×2 (08:38→20:52)
--- NOTE | 2019-09-05 08:50 | WPDINTPN ---
Progress Note: A&P Assessment and Plan (1) Acute respiratory failure: Qualifiers: Respiratory failure complication: hypoxia Qualified Code(s): J96.01 - Acute respiratory failure with hypoxia Code(s): J96.00 - Acute respiratory failure, unspecified whether with hypoxia or hypercapnia Status: Acute Assessment and Plan: acute hypoxic respiratory failure likely related to worsening chest x-ray pneumonia secondary to COVID-19 - 09/04/2019 patient placed on high-flow therapy with 60% flow rate had 90% FiO2 along with 15 L non-rebreather mask, later on in the day patient was tachypneic, desaturated, was intubated on 09/04/2019 - patient was dyssynchronous with the ventilator so was placed on Nimbex on 09/04/2019 along with propofol infusion - continue azithromycin and ceftriaxone. (2) COVID-19: Code(s): U07.1 - COVID-19 Status: Acute Assessment and Plan: Positive COVID-19 at [facility] 1 week prior to admission - SARS-CoV-2 PCR positive on 09/04/2019 here at [facility] - place patient on airborne, droplet, contact precautions /isolation - inflammatory markers are elevated - patient started on Lovenox 1 mg/kg daily discussing with neurology (3) Pneumonia: Qualifiers: Laterality: unspecified laterality Lung location: unspecified part of lung Pneumonia type: due to unspecified organism Qualified Code(s): J18.9 - Pneumonia, unspecified organism Code(s): J18.9 - Pneumonia, unspecified organism Status: Acute Assessment and Plan: as above (4) DM II (diabetes mellitus, type II), controlled: Qualifiers: Diabetes mellitus moth exterminator insulin use: without shelter use Diabetes mellitus complication status: without complication Qualified Code(s): E11.9 - Type 2 diabetes mellitus without complications Code(s): E11.9 - Type 2 diabetes mellitus without complications Status: Chronic Assessment and Plan: patient on Accu-Cheks and sliding scale insulin along with Lantus. Blood sugars elevated, - Lantus increased again this morning (5) Hypertension: Qualifiers: Hypertension type: unspecified Qualified Code(s): I10 - Essential (primary) hypertension Code(s): I10 - Essential (primary) hypertension Status: Chronic Assessment and Plan: patient with systolic blood pressure in the 100s this morning, discontinued propofol, started on fentanyl and Versed infusion. - Also started on Levophed, will try to keep mean arterial pressures greater than 70 mmHg at all times for adequate cerebral perfusion (6) Right sided weakness: Code(s): R53.1 - Weakness Status: Acute Assessment and Plan: most likely left hemispheric CVA - discussed with Neurology, Dr. Rebollar, also thinks the same that she has had a CVA though CT scan of the brain on 09/04/2019 does not show any acute intracranial abnormalities - given that the patient is COVID-19 positive, discussed in details with Neurology regarding anticoagulation and Acute stroke of unknown time. patient was started on Lovenox 1 mg/kg daily (7) Acute renal failure: Qualifiers: Acute renal failure type: unspecified Qualified Code(s): N17.9 - Acute kidney failure, unspecified Code(s): N17.9 - Acute kidney failure, unspecified Status: Acute Assessment and Plan: Patient presented with acute kidney injury with a creatinine of 1.2 on admission, likely related to nausea and vomiting, possible dehydration, could also be related to hypertension, insulin-dependent diabetes - creatinine worsened morning to 2.1. Likely related to diuresis, will also has a history of diabetes, hypertension. - Nephrology consulted - patient given a L IV fluid bolus and will start normal saline at 50 mL/hour for maintenance IV fluids - will obtain urine lytes, CK level - continue to monitor renal function, electrolytes
[2019-09-05] MEDS: ENOXAPARIN 100 MG/ML SYRINGE 85 MG SUB-Q (12:31)
--- NOTE | 2019-09-05 12:59 | PM.CNNEP ---
Assessment and Plan Assessment and plan (1) Acute renal failure: Qualifiers: Acute renal failure type: unspecified Qualified Code(s): N17.9 - Acute kidney failure, unspecified Code(s): N17.9 - Acute kidney failure, unspecified Status: Acute (2) Acute respiratory failure: Qualifiers: Respiratory failure complication: hypoxia Qualified Code(s): J96.01 - Acute respiratory failure with hypoxia Code(s): J96.00 - Acute respiratory failure, unspecified whether with hypoxia or hypercapnia Status: Acute (3) COVID-19: Code(s): U07.1 - COVID-19 Status: Acute (4) Hypertension: Qualifiers: Hypertension type: unspecified Qualified Code(s): I10 - Essential (primary) hypertension Code(s): I10 - Essential (primary) hypertension Status: Chronic (5) DM II (diabetes mellitus, type II), controlled: Qualifiers: Diabetes mellitus complication status: without complication Diabetes mellitus custodial insulin use: without intermediate accountant use Qualified Code(s): E11.9 - Type 2 diabetes mellitus without complications Code(s): E11.9 - Type 2 diabetes mellitus without complications Status: Chronic Assessment and Plan: . Additional Plan Natividad has acute kidney injury/acute renal failure. As already mentioned, her baseline creatinine of 0.8-1.2 mg/dL would argue that she has had some degree of renal insufficiency prior to this recent hospitalization, presumably from her history of hypertension and diabetes. Her acute insult is likely related to her acute infection, relative hypotension, and possibly some degree of prerenal azotemia. At the time my evaluation, she was on pressor therapy to he help her mean arterial pressure but is currently on IV fluids as well. At this point, I agree with current therapy as is in terms of antibiotics, IV fluids, pressors...etc to improve the patient's overall condition. I would follow up on the urine tests that have been ordered with regard to her urine electrolytes, urine eosinophils, and follow trend of his repeat labs and urine output. I will continue follow patient with you while she remains hospitalized to make further recommendations based on her hospital course. Thank you for allowing me to participate in care this patient. History of Present Illness Reason for Consult Consult date: 09/05/19 Reason for consult: acute renal failure Chief Complaint Chief complaint: Ongoing nausea and vomiting, feeling bad++ History of Present Illness Narrative: All the information I have obtained is from review of the electronic medical record and discussion with the physician and nurses involved in her care as the patient is unable to provide me with any history as she is intubated/sedated at this time. The patient is a 54 year old female with a past medical history as outlined below who presented to [facility] ER for nausea, vomiting, fatigue and weakness. It should be noted that approximately one week prior to presentation to [facility] she tested positive for COVID-19. along with the symptoms of nausea, vomiting, weakness, and fatigue she also reported fevers and mild shortness of breath. As the symptoms continued to progressively worsen and her known COVID-19 infection, she came to the emergency room for further evaluation and therapy. Workup and evaluation in the emergency room demonstrated the patient to be hemodynamically stable (if not hypertensive ). Although she was satting 99-100% on room air, an ABG was done which demonstrated her PO2 of 66. Chest x-ray demonstrated extensive acute airspace disease. Appropriate cultures were obtained and she was started on broad-spectrum IV a add back therapy at that time. She was apparently alert and oriented x3 and was initially admitted to the medical floor for ongoing management. Unfortunately, her hospitalization was complicated by worse
[2019-09-05 13:11] LABS: Glucose Point of Care 313 (65-105)
--- NOTE | 2019-09-05 16:52 | PM.IMPN ---
Progress Note: A&P Assessment and Plan (1) Pneumonia due to COVID-19 virus: Code(s): U07.1 - COVID-19; J12.89 - Other viral pneumonia Status: Acute Assessment and Plan: Supportive care Trend inflammatory markers F/u CXR (2) Altered mental status: Qualifiers: Altered mental status type: unspecified Qualified Code(s): R41.82 - Altered mental status, unspecified Code(s): R41.82 - Altered mental status, unspecified Status: Acute Assessment and Plan: Likely metabolic encephalopathy Currently sedated (3) Acute respiratory failure: Qualifiers: Respiratory failure complication: hypoxia Qualified Code(s): J96.01 - Acute respiratory failure with hypoxia Code(s): J96.00 - Acute respiratory failure, unspecified whether with hypoxia or hypercapnia Status: Acute Assessment and Plan: Due to SARS-CoV-2 pneumonia (4) Acute renal failure: Qualifiers: Acute renal failure type: unspecified Qualified Code(s): N17.9 - Acute kidney failure, unspecified Code(s): N17.9 - Acute kidney failure, unspecified Status: Acute Assessment and Plan: Due to SARS-CoV-2 pneumonia Poor prognostic sign (5) DM II (diabetes mellitus, type II), controlled: Qualifiers: Diabetes mellitus terminal superintendent insulin use: without residential use Diabetes mellitus complication status: without complication Qualified Code(s): E11.9 - Type 2 diabetes mellitus without complications Code(s): E11.9 - Type 2 diabetes mellitus without complications Status: Chronic Assessment and Plan: Continue basal and sliding scale insulin (6) Hypertension: Qualifiers: Hypertension type: unspecified Qualified Code(s): I10 - Essential (primary) hypertension Code(s): I10 - Essential (primary) hypertension Status: Chronic Assessment and Plan: Monitor off meds (7) Anemia: Qualifiers: Anemia type: unspecified type Qualified Code(s): D64.9 - Anemia, unspecified Code(s): D64.9 - Anemia, unspecified Status: Chronic Assessment and Plan: Hgb 8.6 Remains relatively stable Subjective Date/time seen: 09/05/19 10:30 Interval history: Admitted 09/01 with cough and dyspnea. Known SARS-CoV-2 positive. Deteroiorated AM of 09/03 and required transfer to ICU for mechanical ventilation. 09/04: Sedated and ventilated. Review of Systems Review of Systems: ROS unobtainable: Yes unobtainable due to medical condition Exam Narrative: Exam Narrative: Resting comfortably with ET tube in place Objective Data Vital Signs Vital Signs: Vital Signs - 24 hr 09/04/19 16:53 09/04/19 19:51 09/04/19 20:00 Temperature 100.4 F H 100.2 F H Pulse Rate 119 H 110 H Respiratory Rate 26 H Blood Pressure 120/76 Pulse Oximetry 90 100 09/04/19 20:06 09/04/19 21:00 09/04/19 22:00 Temperature 100.2 F H 99.9 F H 99.6 F Pulse Rate 100 101 H Respiratory Rate 26 H 26 H Blood Pressure 124/79 125/76 Pulse Oximetry 100 100 09/04/19 23:00 09/04/19 23:21 09/05/19 00:00 Temperature 99.2 F 99.3 F Pulse Rate 99 98 100 Respiratory Rate 26 H 26 H Blood Pressure 117/71 108/70 Pulse Oximetry 100 100 100 09/05/19 00:05 09/05/19 01:00 09/05/19 02:15 Temperature 99.8 F H 100.3 F H Pulse Rate 100 100 Respiratory Rate 26 H 26 H Blood Pressure 106/70 106/68 Pulse Oximetry 100 100 100 09/05/19 02:19 09/05/19 02:44 09/05/19 03:00 Temperature 100.6 F H Pulse Rate 100 101 H Respiratory Rate 26 H Blood Pressure 106/68 Pulse Oximetry 100 100 100 09/05/19 03:01 09/05/19 03:31 09/05/19 04:00 Temperature 100.7 F H 100.6 F H 100 F H Pulse Rate 99 Respiratory Rate 26 H Blood Pressure 120/70 Pulse Oximetry 97 09/05/19 04:16 09/05/19 05:00 09/05/19 06:00 Temperature 99.9 F H 99.8 F H Pulse Rate 98 99 97 Respiratory Rate 26 H 26 H Blood Pressure 106/64
[2019-09-05] MEDS: INSULIN GLARGINE (*BKC) 100 UNITS/ML 30 UNITS SUB-Q (20:50)
[2019-09-05 21:07] LABS: Glucose Point of Care 258 (65-105)
[2019-09-06] VITALS (14 sets, daily range): BP systolic 122–154; BP diastolic 72–80; PULSE 88–103; RESP 26–27; TEMP 37.4–37.7; O2SAT 94–100
[2019-09-06] MEDS: INSULIN ASPART (*BKC) 100 UNITS/ML SUB-Q ×2 (00:25→05:32)
[2019-09-06 00:45] LABS: Glucose Point of Care 247 (65-105)
[2019-09-06] MEDS: SODIUM CHLORIDE 0.9% IV 1,000 ML 50 ML IV CONT (01:43)
[2019-09-06 03:19] LABS: Creatinine Urine 254.4 mg/dL
[2019-09-06 03:23] LABS: Potassium Urine Random 27.1 meq/L; Sodium Urine Random 9 meq/L
[2019-09-06 04:46] LABS: HCO3 ABG 22.1 mEq/l (22.0-26.0); Oxygen Saturation ABG 96.3 % (95.0-100.0); PCO2 ABG 34.4 mmHg (35.0-45.0); PO2 ABG 81.3 mmHg (80.0-100.0); pH ABG 7.425 (7.350-7.450)
[2019-09-06 04:47] LABS: Alveolar/Arterial O2 Gradient 200.4 mmHg; Total Hemoglobin 8.5 g/dL (12.0-18.0)
[2019-09-06 04:48] LABS: Carboxyhemoglobin 0.3 % THb (0-2.0); Methemoglobin ABG 0.5 %THb (0-1.5); Oxygen Content ABG 11.4 %vol (16.0-22.0); Oxyhemoglobin 94.1 % THb (90.0-100.0)
[2019-09-06 04:49] LABS: Device VENTILATOR; Fractional Inspired Oxygen 45 %; Modified Allen's Test Pass; PO2 FiO2 Ratio Arterial Blood 1.81 %; Reduced Hemoglobin 5.1 %THb (0-5.0); Site Drawn RIGHT RADIAL
[2019-09-06 04:50] LABS: Arterial Blood Gas PEEP 12 cmH2O; Arterial Blood Gas Tidal Volume 370 ml; Arterial Blood Gas Vent Mode CMV; Arterial Blood Gas Ventilator rate 26 /MIN
[2019-09-06 05:49] LABS: Glucose Point of Care 213 (65-105)
[2019-09-06 05:59] LABS: Basophils Percent Auto 0.2 % (0.2-1.2); Eosinophils Absolute Auto 0.1 K/mm3 (0-0.3); Eosinophils Percent Auto 1.2 % (0-4.4); Hematocrit 22.8 % (37.0-47.0); Hemoglobin 7.2 g/dL (12.0-15.0); Immature Granulocyte Absolute 0.11 K/mm3 (0.00-0.031); Immature Granulocyte Percent A 1.2 % (0-0.5); Lymphocytes Absolute Auto 0.98 K/mm3 (0.9-3.2); Lymphocytes Percent Auto 10.6 % (18.3-44.2); Mean Corpuscular HGB Conc 31.6 g/dl (32-36); Mean Corpuscular Volume 69.7 fl (80-100); Mean Platelet Volume 9.6 fl (7.4-10.4); Monocytes Absolute Auto 0.5 K/mm3 (0.1-0.6); Monocytes Percent Auto 4.9 % (2.6-8.5); Neutrophils Absolute Auto 7.6 K/mm3 (1.3-6.7); Neutrophils Percent Auto 81.9 % (45.5-73.1); Nucleated Red Blood Cells Perc 0.2 % (0.0-0.2); Platelet Count Result 379 k/mm3 (150-375); Red Blood Count 3.27 M/mm3 (4.2-5.4); Red Cell Distribution Width 19.2 % (11.5-14.5); White Blood Count 9.3 K/mm3 (4.5-10.0)
[2019-09-06 06:37] LABS: Alanine Aminotransferase 21 U/L (4-35); Albumin Level 2.9 g/dL (3.5-5.1); Alkaline Phosphatase 130 U/L (38-126); Aspartate Amino Transferase 45 U/L (14-36); Bilirubin,Total 0.3 mg/dL (0.2-1.3); Blood Urea Nitrogen 36 mg/dL (7-17); CRP 25.3 mg/dL (<1.0); Calcium 8.1 mg/dL (8.4-10.2); Carbon Dioxide 24 mmol/L (22-30); Chloride 105 mmol/L (98-107); Creatine Kinase 74 U/L (30-135); Estimated CRCL calculation 23 ml/min; Estimated Glomerular Filt Rate 22; Glucose 240 mg/dL (65-105); Lactate Dehydrogenase 1013 U/L (313-618); Potassium 4.2 mmol/L (3.4-5.0); Sodium 136 mmol/L (137-145)
--- NOTE | 2019-09-06 09:58 | P.PNIM_ITS ---
Progress Note: A&P Assessment and Plan (1) Stroke: Code(s): I63.9 - Cerebral infarction, unspecified Status: Acute Assessment and Plan: * CTA BRAIN 08/29 negative * CT BRAIN 09/05 with Left MCA distribution and left frontal lobe bleed with midline shift * Home Worker arranging transfer with neuro and neurosurgery * Px poor (2) Pneumonia due to COVID-19 virus: Code(s): U07.1 - COVID-19; J12.89 - Other viral pneumonia Status: Acute Assessment and Plan: * Supportive care * Trend inflammatory markers (3) Altered mental status: Qualifiers: Altered mental status type: unspecified Qualified Code(s): R41.82 - Altered mental status, unspecified Code(s): R41.82 - Altered mental status, unspecified Status: Acute Assessment and Plan: * Likely metabolic encephalopathy with superimposed stroke (4) Acute respiratory failure: Qualifiers: Respiratory failure complication: hypoxia Qualified Code(s): J96.01 - Acute respiratory failure with hypoxia Code(s): J96.00 - Acute respiratory failure, unspecified whether with hypoxia or hyperca pnia Status: Acute Assessment and Plan: * Due to SARS-CoV-2 pneumonia (5) Acute renal failure: Qualifiers: Acute renal failure type: unspecified Qualified Code(s): N17.9 - Acute kidney failure, unspecified Code(s): N17.9 - Acute kidney failure, unspecified Status: Acute Assessment and Plan: * Due to SARS-CoV-2 pneumonia * Poor prognostic sign (6) DM II (diabetes mellitus, type II), controlled: Qualifiers: Diabetes mellitus complication status: without complication Diabetes mellitus ad terminal makeup operator insulin use: without ad terminal makeup operator use Qualified Code(s): E11.9 - Type 2 diabetes mellitus without complications Code(s): E11.9 - Type 2 diabetes mellitus without complications Status: Chronic Assessment and Plan: * Continue basal and sliding scale insulin (7) Hypertension: Qualifiers: Hypertension type: unspecified Qualified Code(s): I10 - Essential (primary) hypertension Code(s): I10 - Essential (primary) hypertension Status: Chronic Assessment and Plan: * Monitor off meds (8) Anemia: Qualifiers: Anemia type: unspecified type Qualified Code(s): D64.9 - Anemia, unspecified Code(s): D64.9 - Anemia, unspecified Status: Chronic Assessment and Plan: * Hgb 8.6 * Remains relatively stable Subjective Date/time seen: 09/06/19 09:58 Interval history: Ventilated. Did not awaken after weaning off sedation 09/04. Review of Systems Review of Systems: ROS unobtainable: Yes unobtainable due to medical condition Exam Narrative: Exam Narrative: Resting comfortably with ET tube in place Decerebrate posturing noted Objective Data Vital Signs Vital Signs: Vital Signs - 24 hr 09/05/19 10:00 09/05/19 11:00 09/05/19 11:27 Temperature 99.2 F 99.5 F Pulse Rate 91 91 93 Respiratory Rate 26 H 26 H Blood Pressure 126/72 131/75 Pulse Oximetry 97 97 97 09/05/19 12:00 09/05/19 13:00 09/05/19 14:00 Temperature 99.9 F H 100.0 F H 100.1 F H Pulse Rate 95 93 98 Respiratory Rate 26 H 26 H 26 H Blood Pressure 129/75 119/73 118/71 Pulse Oximetry 97 98 98
--- NOTE | 2019-09-06 09:58 | PM.IMPN ---
Progress Note: A&P Assessment and Plan (1) Stroke: Code(s): I63.9 - Cerebral infarction, unspecified Status: Acute Assessment and Plan: CTA BRAIN 08/[address] BRAIN 09/05 with Left MCA distribution and left frontal lobe bleed with midline shift [employer] arranging transfer with neuro and neurosurgery Px poor (2) Pneumonia due to COVID-19 virus: Code(s): U07.1 - COVID-19; J12.89 - Other viral pneumonia Status: Acute Assessment and Plan: Supportive care Trend inflammatory markers (3) Altered mental status: Qualifiers: Altered mental status type: unspecified Qualified Code(s): R41.82 - Altered mental status, unspecified Code(s): R41.82 - Altered mental status, unspecified Status: Acute Assessment and Plan: Likely metabolic encephalopathy with superimposed stroke (4) Acute respiratory failure: Qualifiers: Respiratory failure complication: hypoxia Qualified Code(s): J96.01 - Acute respiratory failure with hypoxia Code(s): J96.00 - Acute respiratory failure, unspecified whether with hypoxia or hypercapnia Status: Acute Assessment and Plan: Due to SARS-CoV-2 pneumonia (5) Acute renal failure: Qualifiers: Acute renal failure type: unspecified Qualified Code(s): N17.9 - Acute kidney failure, unspecified Code(s): N17.9 - Acute kidney failure, unspecified Status: Acute Assessment and Plan: Due to SARS-CoV-2 pneumonia Poor prognostic sign (6) DM II (diabetes mellitus, type II), controlled: Qualifiers: Diabetes mellitus complication status: without complication Diabetes mellitus intermediate teacher insulin use: without retirement use Qualified Code(s): E11.9 - Type 2 diabetes mellitus without complications Code(s): E11.9 - Type 2 diabetes mellitus without complications Status: Chronic Assessment and Plan: Continue basal and sliding scale insulin (7) Hypertension: Qualifiers: Hypertension type: unspecified Qualified Code(s): I10 - Essential (primary) hypertension Code(s): I10 - Essential (primary) hypertension Status: Chronic Assessment and Plan: Monitor off meds (8) Anemia: Qualifiers: Anemia type: unspecified type Qualified Code(s): D64.9 - Anemia, unspecified Code(s): D64.9 - Anemia, unspecified Status: Chronic Assessment and Plan: Hgb 8.6 Remains relatively stable Subjective Date/time seen: 09/06/19 09:58 Interval history: Ventilated. Did not awaken after weaning off sedation 09/04. Review of Systems Review of Systems: ROS unobtainable: Yes unobtainable due to medical condition Exam Narrative: Exam Narrative: Resting comfortably with ET tube in place Decerebrate posturing noted Objective Data Vital Signs Vital Signs: Vital Signs - 24 hr 09/05/19 10:00 09/05/19 11:00 09/05/19 11:27 Temperature 99.2 F 99.5 F Pulse Rate 91 91 93 Respiratory Rate 26 H 26 H Blood Pressure 126/72 131/75 Pulse Oximetry 97 97 97 09/05/19 12:00 09/05/19 13:00 09/05/19 14:00 Temperature 99.9 F H 100.0 F H 100.1 F H Pulse Rate 95 93 98 Respiratory Rate 26 H 26 H 26 H Blood Pressure 129/75 119/73 118/71 Pulse Oximetry 97 98 98 09/05/19 14:30 09/05/19 15:00 09/05/19 16:00 Temperature 100.3 F H 100.4 F H Pulse Rate 95 97 95 Respiratory Rate 26 H 26 H Blood Pressure 122/74 114/68 Pulse Oximetry 97 99 97 09/05/19 17:20 09/05/19 18:00 09/05/19 20:00 Temperature 100.4 F H Pulse Rate 96 99 96 Respiratory Rate 26 H 24 H Blood Pressure 129/73 111/68 Pulse Oximetry 98 99 96 09/05/19 20:44 09/05/19 22:00 09/06/19 00:00 Temperature 99.7 F H Pulse Rate 96 94 93 Respiratory Rate 26 H 26 H Blood Pressure 125/71 131/72 Pulse Oximetry 99 98 99 09/06/19 00:24 09/06/19 02:00 09/06/19 04:00 Temperature 99.5 F Pulse Rate 94 97 90 Respiratory Rate
[2019-09-06] MEDS: PANTOPRAZOLE SODIUM IV 40 MG VIAL IV PUSH (10:34)
[2019-09-06] MEDS: SODIUM CHLORIDE 0.9% IV 1,000 ML 75 ML IV CONT (10:34)
--- NOTE | 2019-09-06 10:46 | PCDIET ---
Nutrition Follow-Up Complete: Nutrition Diagnosis: Inadequate oral intake R/T inability to consume PO foods as evidence by NPO order Nutrition Goal: Total intake will meet estimated nutrition needs Goal in progress. MD ordered Glucerna tube feedings at goal of 40mL/hr for now to avoid excessive fluid volume. Ultimate goal will be 60mL/hr x 22 hours/day for 1584kcal and 79g protein. Last recorded weight is 84.8 kg which is decreased. Bowel Motility: No documented BM as of yet. Labs Reviewed: Glu (213), BUN (36), Cr (2.7), Alb (2.9) Meds Noted: Zithromax, Novolog, Protonix, Rocephin, Lantus, Fentanyl, Levophed, Versed, NS at 75mL/hr Additional Notes: No documented skin breakdown. Plan for transfer to outside hospital for MRI when bed available. Nutrition Monitoring and Evaluation: Follow up every Monday/Monday. Follow daily in ICU rounds.
--- NOTE | 2019-09-06 12:01 | WPDINTPN ---
Progress Note: A&P Assessment and Plan (1) Acute respiratory failure: Qualifiers: Respiratory failure complication: hypoxia Qualified Code(s): J96.01 - Acute respiratory failure with hypoxia Code(s): J96.00 - Acute respiratory failure, unspecified whether with hypoxia or hypercapnia Status: Acute Assessment and Plan: acute hypoxic respiratory failure likely related to worsening chest x-ray pneumonia secondary to COVID-19 - 09/04/2019 patient placed on high-flow therapy with 60% flow rate had 90% FiO2 along with 15 L non-rebreather mask, later on in the day patient was tachypneic, desaturated, was intubated on 09/04/2019 - patient was dyssynchronous with the ventilator so was placed on Nimbex on 09/04/2019 along with propofol infusion - continue azithromycin and ceftriaxone. - patient currently on fentanyl and Versed infusion, Nimbex infusion is off. - Chest x-ray and ABGs reviewed, FiO2 wean to 45%, peep of 12 (2) COVID-19: Code(s): U07.1 - COVID-19 Status: Acute Assessment and Plan: Positive COVID-19 at [facility] 1 week prior to admission - SARS-CoV-2 PCR positive on 09/04/2019 here at [facility] - place patient on airborne, droplet, contact precautions /isolation - inflammatory markers are elevated - patient started on Lovenox 1 mg/kg daily discussing with neurology (3) Pneumonia: Qualifiers: Laterality: unspecified laterality Lung location: unspecified part of lung Pneumonia type: due to unspecified organism Qualified Code(s): J18.9 - Pneumonia, unspecified organism Code(s): J18.9 - Pneumonia, unspecified organism Status: Acute Assessment and Plan: as above (4) DM II (diabetes mellitus, type II), controlled: Qualifiers: Diabetes mellitus complication status: without complication Diabetes mellitus local company intermodal truck driver insulin use: without snf use Qualified Code(s): E11.9 - Type 2 diabetes mellitus without complications Code(s): E11.9 - Type 2 diabetes mellitus without complications Status: Chronic Assessment and Plan: patient on Accu-Cheks and sliding scale insulin along with Lantus. Blood sugars elevated, - Lantus increased again this morning (5) Hypertension: Qualifiers: Hypertension type: unspecified Qualified Code(s): I10 - Essential (primary) hypertension Code(s): I10 - Essential (primary) hypertension Status: Chronic Assessment and Plan: patient with systolic blood pressure in the 100s this morning, discontinued propofol, started on fentanyl and Versed infusion. - continue Levophed, will try to keep mean arterial pressures greater than 70 mmHg at all times for adequate cerebral perfusion (6) Right sided weakness: Code(s): R53.1 - Weakness Status: Acute Assessment and Plan: most likely left hemispheric CVA - discussed with Neurology, Dr. Rebollar, also thinks the same that she has had a CVA though CT scan of the brain on 09/04/2019 does not show any acute intracranial abnormalities - given that the patient is COVID-19 positive, discussed in details with Neurology regarding anticoagulation and Acute stroke of unknown time. patient was started on Lovenox 1 mg/kg daily - with decreased neurological status, patient being evaluated for transfer to a higher level of care. Discussed with Neurology at [facility] who recommended getting another CT scan of the brain to rule out bleed, edema. - Ordered stat CT brain, will have Radiology transfer the images to [facility] show the neurologist can take a look at the films (7) Acute renal failure: Qualifiers: Acute renal failure type: unspecified Qualified Code(s): N17.9 - Acute kidney failure, unspecified Code(s): N17.9 - Acute kidney failure, unspecified Status: Acute Assessment and Plan: Patient presented with acute kidney
--- NOTE | 2019-09-06 13:17 | PM.PNNEP ---
Progress Note: A&P Assessment and Plan (1) Acute renal failure: Qualifiers: Acute renal failure type: unspecified Qualified Code(s): N17.9 - Acute kidney failure, unspecified Code(s): N17.9 - Acute kidney failure, unspecified Status: Acute Assessment and Plan: suspect due to combination of prerenal factors (low urine sodium) and acute infection creatinine a bit higher today no critical electrolytes but urine output decreasing trial of IVFs given pre-renal urine electrolytes follow repeat labs and UOP (2) Acute respiratory failure: Qualifiers: Respiratory failure complication: hypoxia Qualified Code(s): J96.01 - Acute respiratory failure with hypoxia Code(s): J96.00 - Acute respiratory failure, unspecified whether with hypoxia or hypercapnia Status: Acute Assessment and Plan: due to pneumonia and COVID-19 infection continue ventilator support (3) COVID-19: Code(s): U07.1 - COVID-19 Status: Acute (4) Hypertension: Qualifiers: Hypertension type: unspecified Qualified Code(s): I10 - Essential (primary) hypertension Code(s): I10 - Essential (primary) hypertension Status: Chronic (5) DM II (diabetes mellitus, type II), controlled: Qualifiers: Diabetes mellitus complication status: without complication Diabetes mellitus senior living insulin use: without rodent exterminator use Qualified Code(s): E11.9 - Type 2 diabetes mellitus without complications Code(s): E11.9 - Type 2 diabetes mellitus without complications Status: Chronic Assessment and Plan: . Subjective Date/time seen: 09/06/19 13:17 Remains intubated and sedated; decorticate posturing on the left upper extremity to pain; given concern for CVA, possible transfer to [facility]); repeat CT scan of head to be done. Exam Narrative: Exam Narrative: General: WD/WN AA female in NAD (intubated/sedated) Heart: normal S1 and S2; no rub Lungs: coarse breath sounds Abdomen: soft, nontender, nondistended, positive bowel sounds Extremities: no cyanosis or clubbing; no edema Skin: warm and dry Objective Data Vital Signs Vital Signs: Vital Signs Temp Pulse Resp BP Pulse Ox 09/06/19 12:20 96 99 09/06/19 10:00 37.4 C 99 26 H 132/76 99 09/06/19 08:40 91 100 09/06/19 08:00 37.6 C 90 26 H 138/74 100 09/06/19 06:00 89 26 H 138/76 100 09/06/19 04:53 88 100 09/06/19 04:00 37.5 C 90 26 H 122/72 100 09/06/19 02:00 97 26 H 131/72 94 09/06/19 00:24 94 100 09/06/19 00:00 37.6 C H 93 26 H 131/72 99 09/05/19 22:00 94 26 H 125/71 98 09/05/19 20:44 96 99 09/05/19 20:00 38.0 C H 96 24 H 111/68 96 09/05/19 18:00 99 26 H 129/73 99 09/05/19 17:20 96 98 09/05/19 16:00 38.0 C H 95 26 H 114/68 97 09/05/19 15:00 37.9 C H 97 26 H 122/74 99 09/05/19 14:30 95 97 09/05/19 14:00 37.8 C H 98 26 H 118/71 98 Intake/Output Intake/Output: Intake & Output 09/03/19 09/04/19 09/05/19 09/06/19 23:59 23:59 23:59 23:59 Intake Total 2891 726 2124 2350 Output Total 2510 425 250 Balance 2891 -2988 1699 2100 Meds/Results Medications: Active Medications Generic Name Dose Route Start Last Admin Trade Name Freq PRN Reason Stop Dose Admin Amlodipine Besylate 5 mg 09/03/19 09:00 09/05/19 08:33 Norvasc PO Not Given DAILY ROCAEL Dextrose 12.5 gm 09/02/19 21:39 Dextrose 50% Syringe IV PUSH PRN PRN Hypoglycemia Protocol Enoxaparin Sodium 85 mg 09/04/19 12:00 09/05/19 12:31 Lovenox SUB-Q 85 mg NOON ROCAEL Administration Glucagon 1 mg 09/02/19 21:39 Glucagon For Inj IM PRN PRN Hypoglycemia Protocol Guaifenesin/Dextromethorphan 5 ml 09/02/19 21:36 09/03/19 17:30 Robitussin-Dm Syrup PO 5 ml Q4H PRN Administration Cough Azithromycin 500 mg in 250 mls @ 250 mls
[2019-09-06 15:48] LABS: Procalcitonin 0.31 ng/mL (<0.10)
[2019-09-06 16:03] LABS: Pneumococcal Antigen Urine Not Detected (Not Detected)
--- NOTE | 2019-09-06 17:18 | PM.DDS ---
Discharge Sum: Prov Provider Primary care physician: Rae Harrison MD Admitting provider: Chris Real MD Consults: 09/04/19 Consult to Physician Routine Comment: Consulting Provider: Blake Blood Reason for consultation: icu transfer Has provider been notified: Yes 09/04/19 08:56 Consult to Physician Routine Comment: callede cell and notified of consult Consulting Provider: Andrae Rebollar call center nurse/MD group to consult: NEUROLOGY Reason for consultation: acute right sided weakness, right sided neglect, Has provider been notified: Yes 09/05/19 07:30 Consult to Physician Routine Comment: called exchange with consult information Consulting Provider: Ronaldo Roman call center nurse/MD group to consult: NEPHROLOGY Reason for consultation: Acute kidney injury Has provider been notified: Yes Discharge Sum: Diag PCOD stroke Contributing Factors (1) Stroke: (2) Pneumonia due to COVID-19 virus: (3) Acute respiratory failure: (4) DM II (diabetes mellitus, type II), controlled: (5) Hypertension: Discharge Sum: Summary Date and Time Date of admission: 09/03/19 10:36 Summary Details: Admitted with SARS-CoV-2 Pneumonia and respiratory failure. Ventilated and sedated. Failed to awaken when sedation weaned. Showed right side decerebrate posturing. CT with extensive L MCA stroke, edema, and midline shift, as well as left frontal bleed. Family opted to withdraw care. Patient that evening. Additional Data Attending physician: Sherrie Almendarez PA-C
[2019-09-06 18:28] LABS: Glucose Point of Care 190 (65-105)
[2019-09-06] MEDS: MORPHINE SULFATE 4 MG/ML INJ IV PUSH (18:33)
[2019-09-06] MEDS: LORAZEPAM INJ 2 MG/ML VIAL IV PUSH (18:33)
--- NOTE | 2019-09-06 19:42 | PC.NURSE ---
Withdrew care 1840 per family request.
--- NOTE | 2019-09-06 19:58 | PC.NURSE ---
Pt at 1939. Verified by two nurses. Notified pt's daughter, Charlene ([phone]) at [phone]. Charlene states they are going to transfer pt to [place] and are waiting to hear back from the home that they normally use. They will notify ICU when arrangements have been made. Charge nurse, store warehouse associate, and JELENA Weller notified.
--- NOTE | 2019-09-06 21:00 | PC.NURSE ---
Wallace catheter, 2 peripheral IV, and Right IJ removed from pt prior to placing in [facility].
--- NOTE | 2019-09-06 22:05 | PC.NURSE ---
[place] [facility] [place] in cooler. No personal belongings. Family has yet to call with home. Security notified.
[2019-09-13 12:40] LABS: Chloride Rand Ur <20 mmol/L (32-290); Creatinine Random Urine 220 mg/dL (20-275)
== END 2019-09-06 19:40 | disposition expired | DRG 137 ==
LOC: ANHED 19:48 → ANH3MEDSUR 20:26 → ANHICU 09-05 10:27 → ANH3MEDSUR 09-10 12:41 → ANHICU 09-10 12:41
PROVIDERS: Internal Medicine; Physician Assistant; Admitting Provider Family Medicine; Emergency Provider Emergency Medicine; PCP Family Medicine; Visit Provider Internal Medicine
DX: U07.1 COVID-19 (principal); J12.89 Other viral pneumonia; K29.70 Gastritis, unspecified, without bleeding; E11.9 Type 2 diabetes mellitus without complications; I10 Essential (primary) hypertension; D64.9 Anemia, unspecified; N17.9 Acute kidney failure, unspecified; E86.0 Dehydration; N39.0 Urinary tract infection, site not specified; J96.00 Acute respiratory failure, unspecified whether with hypoxia or hypercapnia; I63.9 Cerebral infarction, unspecified; G93.41 Metabolic encephalopathy; G81.94 Hemiplegia, unspecified affecting left nondominant side
CPT/HCPCS: 31500; 36415; 36600; 70450; 71045; 80053; 81001; 82375; 82436; 82550; 82570; 82728; 82805; 83036; 83050; 83605; 83615; 83735; 84133; 84145; 84300; 84484; 85025; 85027; 85380; 85610; 85730; 85999; 86140; 87040; 87086; 87635; 87899; 94002; 94003; 94640; 96361; 96365; 96367; 96375; 99285; A9270; C1751; C9113; G0378; J0131; J0456; J0696; J1650; J1815; J1940; J2060; J2250; J2270; J2405; J2704; J3010; J7030; J7060; U0003